=== PATIENT | female | born 1950 | race Caucasian/White ===

== ENCOUNTER 2022-03-20 03:50 | Observation (INO) | payer MEDICARE ==
[2022-03-20 04:40] LABS: #Basophils 0.1 10x3/uL (0.0-0.2); #Eosinphils 0.1 10x3/uL (0.0-0.5); #Monocytes 0.7 10x3/uL (0.0-1.1); #Neutrophils 5.9 10x3/uL (1.5-8.4); %Basophils 0.8 % (0.0-2.0); %Eosinophils 1.2 % (0.0-6.0); %Lymphocytes 22.5 % (18.0-47.0); %Monocytes 7.6 % (0.0-10.0); %Neutrophils 66.8 % (40.0-75.0); Hemoglobin 12.5 g/dL (12.0-15.5); Mean Corpuscular HGB CONC 32.6 g/dL (32.0-36.0); Mean Corpuscular Hemoglobin 31.1 pg (27.0-33.0); Mean Corpuscular Volume 95.5 fl (81.6-98.3); Mean Platelet Volume 10.5 fl (7.4-10.4); Platelet Count 261 10x3/uL (150-450); RBC Distribution Width 13.9 % (11.5-14.5); Red Blood Cell (RBC) Count 4.02 10x6/uL (3.90-5.03); White Blood Cell (WBC) Count 8.8 10x3/uL (3.5-10.5)
[2022-03-20 04:54] LABS: ALT (SGPT) 9 U/L (8-55); AST (SGOT) 17 U/L (5-34); Albumin 3.8 g/dL (3.4-4.8); Alkaline Phosphatase 61 U/L (40-110); Anion Gap 17 mmol/L (10-20); BUN (Urea Nitrogen) 7 mg/dL (9.8-20.1); Bilirubin, Total 0.3 mg/dL (0.2-1.2); CK (CPK) 110 U/L (29-168); Calc. Creatinine Clearance 0 mL/min (70-130); Calcium 8.8 mg/dL (7.8-10.44); Carbon Dioxide 26 mmol/L (23-31); Chloride 107 mmol/L (98-107); Globulin 2.4 g/dL (2.4-3.5); Glucose 104 mg/dL (80-115); Potassium 3.7 mmol/L (3.5-5.1); Protein, Total 6.2 g/dL (5.8-8.1); Sodium 146 mmol/L (136-145)
[2022-03-20 05:06] LABS: Bilirubin Neg (Negative); Blood, Urine 25 (Negative); Clarity Slightly Cloudy (Clear); Glucose, Urine (Dipstick) Normal (Negative); Ketone, Urine Negative (Negative); Leukocyte 100 (Negative); Nitrite Negative (Negative); Protein, Urine (Dipstick) 30 mg/dl (Neg-Trace); Specific Gravity, Urine 1.015 (1.002-1.036); Urobilinogen Normal mg/dL (Less than 2); pH, Urine 6.5 (5.0-9.0)
[2022-03-20 05:07] LABS: Acetaminophen Less than 10.0 mcg/mL (10.0-30.0); Alcohol Less than 10 mg/dL (Less than 10); Salicylate Less than 8.0 mg/dL (15.0-30.0)
[2022-03-20 05:16] LABS: Amphetamine Not Detected (NotDetected); Barbiturates Screen Not Detected (NotDetected); Benzodiazepine Screen Not Detected (NotDetected); Cocaine Metabolite Screen Not Detected (NotDetected); Methadone Not Detected (NotDetected); Methamphetamine Not Detected (NotDetected); Opiate Screen Not Detected (NotDetected); Oxycodone Screen Not Detected (NotDetected); Phencyclidine (PCP) Not Detected (NotDetected); THC/Cannabinoid Screen Detected (NotDetected); Tricyclic Screen Not Detected (NotDetected)
[2022-03-20 05:21] LABS: Bacteria/HPF Rare-Few HPF (None Seen); RBC/HPF 0-3 HPF (0-3); Squamous Epithelial 0-3 HPF (0-3)
[2022-03-20] MEDS ORDERED: Acetaminophen 325 MG TAB PO PRN (06:19)
[2022-03-20] MEDS ORDERED: Senokot S 8.6-50 MG TAB PO PRN (06:19)
[2022-03-20] MEDS ORDERED: Guaifenesin DM 100-10/5 ML UDCUP PO PRN (06:19)
[2022-03-20] MEDS ORDERED: Ondansetron PF 4 MG/2 ML Vial IVP PRN (06:19)
[2022-03-20] MEDS ORDERED: Calcium Carbonate 500 MG ChewTAB PO PRN (06:19)
[2022-03-20] MEDS ORDERED: Lactated Ringer's 1,000 ML IV SCH (06:30)
[2022-03-20] MEDS ORDERED: Lorazepam 2 MG/ML VIAL SLOW IVP PRN (06:37)
[2022-03-20 07:05] LABS: Phosphorus 3.4 mg/dL (2.3-4.7)
[2022-03-20 07:08] LABS: CK (CPK) 127 U/L (29-168)
[2022-03-20 07:36] LABS: CKMB 4.1 ng/mL (0-6.6)
[2022-03-20] MEDS ORDERED: levETIRAcetam 500 MG/5 ML VIAL SLOW IVP SCH (09:45)
[2022-03-20] MEDS ORDERED: Potassium Chloride 20 MEQ TAB PO SCH (09:45)
[2022-03-20] MEDS ORDERED: cefTRIAXone\\ROCEPHIN 1 GM in Sodium Chloride 0.9% 100 ML IVPB SCH (09:45)
[2022-03-20] MEDS: Nicotine 21 MG PATCH TD SCH (10:19)
[2022-03-20 10:21] LABS: Troponin I 0.043 ng/mL (< 0.028)
[2022-03-20 11:27] LABS: CKMB 5.3 ng/mL (0-6.6)
[2022-03-20 12:35] VITALS: BMI 20.9
[2022-03-20] MEDS ORDERED: levETIRAcetam 500 MG TAB PO SCH (17:00)
[2022-03-20] MEDS: Budesonide 0.5 MG/2 ML NEB NEB SCH (17:39)
[2022-03-20 18:44] LABS: SARS-CoV-2 NAA Rapid Test Not Detected (NotDetected)
[2022-03-20] MEDS: levETIRAcetam 500 MG TAB PO SCH (20:56)
[2022-03-21] MEDS: Budesonide 0.5 MG/2 ML NEB NEB SCH (05:30)
[2022-03-21] MEDS ORDERED: Levothyroxine Sodium 50 MCG TAB PO SCH (06:00)
[2022-03-21] MEDS: Nicotine 21 MG PATCH TD SCH (08:50)
[2022-03-21] MEDS: levETIRAcetam 500 MG TAB PO SCH (08:50)
[2022-03-21 13:00] VITALS: BP 108/60; TEMP 97.2
== END 2022-03-21 15:42 | disposition home or self-care (01) ==
LOC: CSHERS 03:50 → SUATTDRO 03:50 → CSHTELE 09:32 → INTOOBSV 09:32
PROVIDERS: ADMIT Internal Medicine; ATTEND Internal Medicine
DX: R40.4 Transient alteration of awareness (principal); I10 Essential (primary) hypertension; E03.9 Hypothyroidism, unspecified; I67.1 Cerebral aneurysm, nonruptured; G91.9 Hydrocephalus, unspecified; I60.9 Nontraumatic subarachnoid hemorrhage, unspecified; G93.40 Encephalopathy, unspecified; J44.1 Chronic obstructive pulmonary disease with (acute) exacerbation; R13.10 Dysphagia, unspecified; I69.954 Hemiplegia and hemiparesis following unspecified cerebrovascular disease affecting left non-dominant side; Z98.2 Presence of cerebrospinal fluid drainage device; Z86.19 Personal history of other infectious and parasitic diseases; F17.210 Nicotine dependence, cigarettes, uncomplicated; F12.90 Cannabis use, unspecified, uncomplicated; Z88.5 Allergy status to narcotic agent
CPT/HCPCS: 70450; 71045; 80306; 80307; 82140; 82550 ×2; 82553; 83735; 84100; 84484 ×2; 87086; 93005; 94640 ×3; 96374; 99285; G0378 ×3; J1953; U0002; 36415; 80053; 81003; 81015; 84443; 85025; J0696; J3490; J7620; J7626

== ENCOUNTER 2022-05-17 10:17 | Outpatient (CLI) | payer MEDICARE ==
[2022-05-17] MEDS ORDERED: Iopamidol 370 76% 100 ML VIAL ONE (12:29)
== END 2022-05-17 10:18 | disposition home or self-care (01) ==
LOC: CSHCT 10:17
PROVIDERS: ATTEND Psychiatry & Neurology Neurology
DX: I60.9 Nontraumatic subarachnoid hemorrhage, unspecified (principal); I72.9 Aneurysm of unspecified site; Z98.890 Other specified postprocedural states; Z98.2 Presence of cerebrospinal fluid drainage device
CPT/HCPCS: 70496; 82565